=== PATIENT | male | born 1990 | race Caucasian/White ===

== ENCOUNTER 2017-10-05 10:41 | Observation (INO) ==
--- NOTE | 2017-10-05 11:04 | Emergency Department Note ---
Disposition Clinical Impression: Cauda equina compression Disposition: Admitted As Inpatient Forms: ED Satisfaction Letter Back Pain HPI - General Chief Complaint: ED Back Pain/Injury Stated Complaint: back pain Time Seen by Provider: 10/05/17 10:42 Source: EMS Limitations: no limitations - History of Present Illness HPI Narrative: 26 yo M reports to the ED c/o R sided low back pain x 2 months that radiates down the posterior-lateral aspect of his R leg to his Pinky toe that has progressively gotten worse over the last few days. He reports being unable to bear weight on leg however was able to bear weight and transfer from EMS cot to our bed. Patient was evaluated earlier this morning at [facility] ED. Lumbar X ray there showed:"1. No acute abnormality. 2. Mild facet arthropathy at L5-S1, unchanged. 3. Sclerosis along the left sacroiliac joint is unchanged and could relate to sacroiliitis." Patient denies specific moment of trauma. He reports his back pain onset gradually and has just gradually gotten worse to the point he could not bear it this morning prompting his visit to the ED. [facility] planned to discharge patient home, but patient reported being unable to stand so [facility] decided to send to [facility] for MRI of Lumbar spine. Patient denies numbness tingling, dysuria, urinary incontinence, incontinence of stool, saddle anesthesia. Pt Subjective Complaint: back pain Onset (ago): day(s) Duration: constant, gradually worsening Location: lumbar spine Quality: sharp Radiation: right leg Worsens with: movement Associated symptoms: Reports: difficulty walking. Denies: numbness, weakness, incontinence of bowel/bladder, fever, abdominal pain, dysuria, hematuria Treatments prior to arrival: NSAIDS, prescription analgesics, other medications (neurontin, flexeril, steroids) - Related Data Home Medications Medication Instructions Recorded Confirmed Cyclobenzaprine [Flexeril] 10 mg PO TID PRN 10/05/17 10/05/17 Gabapentin [Neurontin] 100 mg PO TID 10/05/17 10/05/17 Previous Rx's Medication Instructions Recorded Dexamethasone [Decadron] 4 mg PO BID #10 tab 10/05/17 HYDROcodone/Acet 5/325 mg [[place] 1 tab PO Q4H PRN 3 Days #12 tab 10/05/17 5-325 mg] Allergies Allergy/AdvReac Type Severity Reaction Status Date / Time No Known Allergies Allergy Verified 10/05/17 10:47 Review of Systems: As Per HPI Past Medical History - Past Medical History Medical history: Reports: other Surgical history: Reports: other Psychiatric history: Reports: no psych history - Social History Smoking Status: Never smoker Smokeless Tobacco Status: No Alcohol use: Reports: none Drug use: Reports: none Physical Exam - General Limitations: no limitations General appearance: alert, in no apparent distress - Head Head exam: atraumatic, normocephalic - ENT ENT exam: normal oropharynx, mucous membranes moist - Neck Neck exam: Present: full ROM, trachea midline - Chest Chest inspection: Present: symmetric chest wall rise. Absent: tenderness - Respiratory Respiratory exam: Present: normal lung sounds bilaterally. Absent: respiratory distress - Cardiovascular Cardiovascular exam: Present: regular rate, normal rhythm. Absent: normal heart sounds - Abdominal Exam Abdominal exam: Present: soft, Non-Tender - Extremities Exam Extremities exam: Present: full ROM. Absent: tenderness, pedal edema - Expanded Lower Extremity Exam Neurovascular/Tendon exam: Present: normal capillary refill. Absent: pulse deficit, motor deficit, sensory deficit, extremity cold to touch - Back Exam Back exam: Present: paraspinal tenderness (R). Absent: vertebral tenderness, rashes - Neurological Exam Neurological exam: Present: alert, oriented X3, reflexes normal. Absent: motor sensory deficit - Expanded Neurological Exam Upper motor neuron exam: Babinski sign: Absent bilaterally Sensory exam lower extremity: light touch: Normal DTR: patellar (L): 2+, patellar (R): 2+ - Psychiatric Psychiatric exam: Present: normal affect, normal mood - Skin Skin exam: Present: warm, dry Course Course Narrative: Will check MRI of lumbar spine to evaluate for buldging disc or other causes of radiculopathy. - Consultations Consultation #1: Consulted Dr. Lantigua he agreed to admit the patient and evaluate the patient for need for surgery. Vital Signs Temperature 97.6 F 10/05/17 10:42 Pulse Rate 86 10/05/17 10:42 Respiratory Rate 15 10/05/17 10:42 Blood Pressure 145/72 10/05/17 10:42 O2 Sat by Pulse Oximetry 95 10/05/17 10:42 Temperature 97.6 F 10/05/17 10:42 Pulse Rate 86 10/05/17 10:42 Respiratory Rate 15 10/05/17 10:42 Blood Pressure 145/72 10/05/17 10:42 O2 Sat by Pulse Oximetry 95 10/05/17 10:42 Oxygen Delivery Oxygen Delivery Room Air Back Pain/Injury - MDM Narrative Medical decision making narrative: Symptoms sound consistent with and S1 or L5 radiculapthy. Patient doesn't have any weakness, abnormal reflexes, or sensory deficits of exam. MRI lumbar spine performed. MRi does show severe spinal canal stenosis with disc buldge contacitng the cauda equina. Compression of R L5 nerve root. Patient will be admitted to [facility] to Dr. Lantigua. - Differential Diagnosis Differential Diagnosis: Likely: lumbar radiculopathy, sciatica, strain of lumbar region, discitis - Medical Records Medical records reviewed: Yes I reviewed the patient's medical records. - Radiology Data Radiology results reviewed: Yes I reviewed the patient's radiology results. Attestation Statement - Attestation Attestation: I, Vitaliy Méndez DO, examined this patient [id number] and my medical decision-making was reviewed with Alfonso Adhikari PGY-1 Resident Physician. I agree with the documented findings, disposition and treatment plan as described except to the extent set forth below. Please see my progress notes for details.
--- NOTE | 2017-10-05 12:59 | Emergency Department Note ---
Disposition Clinical Impression: Back pain, Cauda equina compression Disposition: Admitted As Inpatient Condition: Fair Forms: ED Satisfaction Letter Time of Disposition: 12:59 General Adult HPI - General Chief complaint: ED Back Pain/Injury Stated complaint: back pain Time Seen by Provider: 10/05/17 10:42 Source: EMS Limitations: no limitations - History of Present Illness Pain Scale: 5 - Related Data Home Medications Medication Instructions Recorded Confirmed Cyclobenzaprine [Flexeril] 10 mg PO TID PRN 10/05/17 10/05/17 Gabapentin [Neurontin] 100 mg PO TID 10/05/17 10/05/17 Previous Rx's Medication Instructions Recorded Dexamethasone [Decadron] 4 mg PO BID #10 tab 10/05/17 HYDROcodone/Acet 5/325 mg [[place] 1 tab PO Q4H PRN 3 Days #12 tab 10/05/17 5-325 mg] Allergies Allergy/AdvReac Type Severity Reaction Status Date / Time No Known Allergies Allergy Verified 10/05/17 10:47 Past Medical History - Past Medical History Medical history: Reports: other Surgical history: Reports: other Psychiatric history: Reports: no psych history - Social History Smoking Status: Never smoker Smokeless Tobacco Status: No Alcohol use: Reports: none Drug use: Reports: none Physical Exam - General Limitations: no limitations General appearance: alert, in no apparent distress Course Vital Signs Temperature 97.6 F 10/05/17 10:42 Pulse Rate 86 10/05/17 10:42 Respiratory Rate 15 10/05/17 10:42 Blood Pressure 145/72 10/05/17 10:42 O2 Sat by Pulse Oximetry 95 10/05/17 10:42 Temperature 97.6 F 10/05/17 10:42 Pulse Rate 86 10/05/17 10:42 Respiratory Rate 15 10/05/17 10:42 Blood Pressure 145/72 10/05/17 10:42 O2 Sat by Pulse Oximetry 95 10/05/17 10:42 Oxygen Delivery Oxygen Delivery Room Air Attestation Statement - Attestation Attestation: I, Vitaliy Méndez DO, examined this patient [id number] and my medical decision-making was reviewed with Alfonso Adhikari PGY-1, Resident Physician. I agree with the documented findings, disposition and treatment plan as described except to the extent set forth below. Please see my progress notes for details. 26-year-old male presents emergency room for evaluation of lower back pain. Patient has been progressively getting worse over the last several days to the point where the patient has inability to stand or walk without being on his tiptoes. Patient denies any trauma or injury. Currently denying chest pain shortness of breath headache vision changes nausea vomiting or diarrhea. He denies any medications. Denies any issues with bowel or bladder incontinence. Patient has no numbness or tingling in the lower extremities. He has no saddle paresthesias on exam. Patient has no complaints about the waist at this point. Palpation of his back does not really elicit any pain. Patient has significant pain with ambulation and standing or moving or twisting at this point. He does not have these issues he does not have any scintillating sensation lower extremities he only has pain at radiates in his lower back. Patient was seen in outside facility and required multiple doses of pain medication. He was unable to have his pain controlled and a sentinel. For MRI imaging. Patient had MRI ordered at this time. Otherwise his neurologic evaluation does not show any signs of motor function deficit. He has normal strength with extension of the great toe dorsiflexion plantar flexion and movement of the lower extremity. Initially patient deferred rectal examination of this time for sphincter tone. MRI was ordered. Disposition will be determined once imaging modality is completed. See detailed documentation of the physical exam, medical intervention, medical decision-making and disposition in the resident physician's note. No critical care by the patient' s treatment course at this time. 1255 MRI is brought back and is resulted is concerning for cauda equina-like syndrome at L4-L5. Sphincter tone was evaluated patient does appear to be diminished based on physical exam. Patient said that he uses restroom and urinated approximately 300 mL of urine. A repeat evaluation of the bladder after the urination showed approximately 650 mL of urine in his bladder at this time. Concern is that patient has had retention to a point where is retained approximately 1 L of urine in his bladder without having pain or discomfort. This is concerning for urinary retention consistent with a cauda equina-like presentation. Vital signs remain stable. Pain medication was provided. Lengthy discussion was had with the spinal surgeon Dr. Cox. He agreed to admission for observation reevaluation by himself in inpatient setting. Patient family were informed and comfortable this plan. Patient will be admitted to the floor at this point.
[2017-10-05 14:45] LABS: Basophils % 0.2 %; Hematocrit 46.9 % (37.5-50.1); Hemoglobin 16.1 g/dL (12.9-16.9); Immature Granulocytes % 0.7 % (0-4); Lymphocytes # 0.9 K/mcL (0.6-4.6); Lymphocytes % 6.3 %; Mean Corpuscular HGB Conc 34.3 g/dL (31.6-35.5); Mean Corpuscular Hemoglobin 29.3 pg (28.0-33.3); Mean Corpuscular Volume 85.3 fL (83.0-100.0); Mean Platelet Volume 9.3 fL (9.4-12.4); Monocytes # 0.3 K/mcL (0.0-1.3); Monocytes % 2.4 %; Neutrophils # 13.1 K/mcL (1.6-8.9); Platelet Count 269 K/mcL (140-400); Red Cell Distribution Width 12.5 % (11.5-14.5); Segmented Neutrophils % 90.4 %
[2017-10-05 15:00] LABS: Alanine Aminotransferase 33 Units/L (7-52); Albumin 4.4 g/dL (3.5-5.7); Albumin/Globulin Ratio 1.4 (1.1-2.2); Alkaline Phosphatase 61 Units/L (34-104); Aspartate Amino Transferase 25 Units/L (13-39); BUN/Creatinine Ratio 14 (6-26); Bilirubin,Total 1.1 mg/dL (0.3-1.0); Blood Urea Nitrogen 10 mg/dL (6-20); Calcium 9.4 mg/dL (8.6-10.3); Carbon Dioxide 30 mEq/L (23-29); Chloride 102 mEq/L (98-107); Globulin 3.1 g/dL (2.4-3.5); Glucose 117 mg/dL (70-105); INR 1.1; Osmolality,Calculated 282 (280-300); Potassium 3.9 mEq/L (3.5-5.1); Prothrombin Time 11.7 Seconds (9.4-12.1); Sodium 136 mEq/L (136-145); Total Protein 7.5 g/dL (6.4-8.9); eGFR For African Americans > 60 (> 60); eGFR For Non-African Americans > 60 (> 60)
[2017-10-05 15:03] LABS: Activated Partial Thrombo Time 27.7 Seconds (26.0-36.0)
[2017-10-05] MEDS ORDERED: Naloxone 0.4 MG/ML INJ IVP PRN ×2 (15:24→18:52)
[2017-10-05] MEDS ORDERED: Ibuprofen 400 MG TABLET PO PRN (15:24)
[2017-10-05] MEDS ORDERED: *HR* OxyCODONE Immed Rel 5 MG TABLET PO PRN (15:24)
[2017-10-05] MEDS ORDERED: *HR* HYDROcodone/Acet 5/325 mg TABLET PO PRN ×2 (15:24→18:52)
[2017-10-05] MEDS ORDERED: Ondansetron 4 MG/2 ML VIAL IVP PRN (15:24)
[2017-10-05] MEDS ORDERED: Acetaminophen 325 MG TABLET PO PRN ×2 (15:24→18:52)
--- NOTE | 2017-10-05 15:24 | Orthopedic Consult Note ---
Date of Encounter: 10/05/17 Time of Encounter: 13:00 Assessment and Plan (1) Degenerative disc disease Current Visit: Yes Status: Chronic Qualifiers: Spinal region: lumbosacral Qualified Code(s): M51.37 - Other intervertebral disc degeneration, lumbosacral region (2) Lumbar radiculopathy Current Visit: Yes Status: Acute (3) Cauda equina compression Current Visit: Yes Status: Acute (4) Back pain Current Visit: Yes Status: Acute Qualifiers: Back pain location: low back pain Chronicity: acute Back pain laterality : midline Sciatica presence: without sciatica Qualified Code(s): M54.5 - Low back pain History of Present Illness Chief complaint: right leg pain, difficulty walking, difficulty voiding HPI: Mr. Rubi is a 26 year old male presenting to [facility] for evaluation of back pain, right leg pain. He states that approximately 2 months ago he started to notice some mild lower back pain that over the past couple of weeks the pain has progressed to extension down the right lateral aspect of the thigh as well as extension to the right lateral calf not extending to the right foot. He states that what started as mild pain has progressively worsened to now as of this morning becoming intense pain leading him to go to the emergency room at [facility] this morning. He states that laying down flat makes the back pain still better however with standing it increases significantly down the leg and causes him great difficulty with walking. He states this morning in addition to the pain he had significant difficulty walking really been unable to stand which let him go to the emergency room for evaluation. He states it was standing he gets what he describes as "charley horse" and severe spasms that he states "will not go away" despite moving around her stretching. He states that the spasms are in the area of where the pain is in the right lower extremity. Most concerning he states that while at the ER this morning he noted that he was having decreased volume of urine production. He states that since this morning he has had increasing trouble with voiding. He states that he feels the urge to urinate however then is unable to initiate stream or control end of stream. On examination prior to urination patient had 1000 mL urine noted in the bladder. Post void residual was 650 mL noted. He has continue to have decreasing volumes of urinary production with each urination with increasing volumes postvoid residual per ER physician. He denies any bowel changes other than his usual unpredictable bowel secondary to his irritable bowel syndrome. He denies any numbness or tingling to the rectal groin or scrotal areas. She denies sexual dysfunction over the past couple of months since his pain started. He denies weakness in the lower extremities. He denies any trauma, falls, motor vehicle accidents, or other injury to the spine. He admits to seeing [facility] since development of the back pain. He states he seen Dr. Cruz in the office as recently as 2 days ago on 10/03/17 for this back pain and leg pain. He states that he had been put on prednisone, Flexeril, and Neurontin. He states that these combination of medications has not helped at all with the back or leg pain. 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 He states he takes medication for his bowels. He denies any history of urinary or bladder troubles requiring intervention. He denies any history of urinary retention or urination difficulties. On examination he is resting comfortably in ED cot, accompanied by his spouse, and his mother and father. He is alert and oriented 3. Sensation is intact to bilateral lower extremities in all neural dermatomes. He denies altered sensation to palpation in these regions. Upper and lower motor neuro function is intact. Strength intact. Straight leg raise to the right lower extremity is significantly positive. Straight leg raise of the left lower extremity patient has contralateral pain in the right L3-L4 distribution. Patient states that unable to walk for this provider. Assessment: Evolving cauda equina syndrome Lumbar stenosis Plan: Discussed with Dr. Cox. Given concern for evolving cauda equina syndrome with patient's increasing difficulty with urination, concern for long-term neurological damage exists. Discussed this at length with patient and his family members. Recommendation by Dr. Cox is for laminectomy of L4-5 to be performed emergently to prevent long-term consequences of nerve compression. Risks and benefits of this surgical intervention were discussed with patient and his family member. Patient verbalizes understanding of the risks and benefits and states wishes to proceed with surgical intervention. Informed consent obtained for laminectomy L4-5 for diagnoses of evolving cauda equina syndrome, lumbar stenosis. Discussed with ED physician plan of care. Admit to observation Nothing by mouth Stat CMP, CBC, PT/PTT Communicated with OR charge nurse for add-on case for today who is arranging for pain management coordination. Admission orders completed. Past Med Surg Social Fam HX - Past Medical History Medical history: other Psychiatric history: no psych history - Past Surgical History Surgical History: other - Social History Smoking Status: Never smoker Smokeless Tobacco Status: No Alcohol use: none Drug use: none - Family History Mother Hx Family Cardiac Disorders: Yes (afib) Hx Family Respiratory Disorders: Yes (sleep apnea) Medications and Allergies Cyclobenzaprine HCl [Cyclobenzaprine HCl] 5 mg PO Q8H PRN 10/05/17 [History] Gabapentin [Neurontin] 300 mg PO TID 10/05/17 [History] predniSONE [PredniSONE] See Taper PO AD 10/05/17 [History] 3 Allergy/AdvReac Type Severity Reaction Status Date / Time No Known Allergies Allergy Verified 10/05/17 10:47 All Systems Reviewed: The remainder of the systems were reviewed and are negative Physical Exam - Constitutional Vitals: Temp Pulse Resp BP Pulse Ox 99.2 F 90 16 137/81 95 10/05/17 14:36 10/05/17 14:36 10/05/17 14:36 10/05/17 14:36 10/05/17 14:36 Results - Labs Result Diagrams: 10/05/17 14:09 10/05/17 14:09 Labs: Abnormal lab results WBC 14.5 K/mcL (4.3-11.1) H 10/05/17 14:09 MPV 9.3 fL (9.4-12.4) L 10/05/17 14:09 Neutrophils # 13.1 K/mcL (1.6-8.9) H 10/05/17 14:09 Carbon Dioxide 30 mEq/L (23-29) H 10/05/17 14:09 Creatinine 0.69 mg/dL (0.70-1.30) L 10/05/17 14:09 Glucose 117 mg/dL (70-105) H 10/05/17 14:09 Total Bilirubin 1.1 mg/dL (0.3-1.0) H 10/05/17 14:09 H & H 10/05/17 Range/Units 14:09 Hgb 16.1 (12.9-16.9) g/dL Hct 46.9 (37.5-50.1) % All other labs normal. Consult Discharge Plan - Plan Referrals: Jillian Mejia [Primary Care Provider] -
[2017-10-05] MEDS ORDERED: Ringers Solution, Lactated 1,000 ML IVC SCH ×2 (15:30→18:52)
[2017-10-05] MEDS ORDERED: tiZANidine 4 MG TABLET PO PRN (15:31)
[2017-10-05] MEDS ORDERED: *HR* FentaNYL (PF) 100 MCG/2 ML VIAL ONE ×2 (15:55→16:53)
[2017-10-05] MEDS ORDERED: *HR* Midazolam HCl 2 MG/2 ML VIAL ONE (15:55)
[2017-10-05] MEDS ORDERED: *HR* Propofol 200 MG/20 ML VIAL IVP ONE (15:55)
--- NOTE | 2017-10-05 16:13 | Anesthesia Evaluation PreOp ---
Date of Encounter: 10/05/17 Time of Encounter: 16:12 - Past History Planned Operation: L4-5 Laminectomy Cardiac History: Denies any Significant Hx Pulmonary History: Denies Any Significant HX ENVELOPE PRESS OPERATOR History: Denies Any Significant HX Other Medical History: Denies Any Significant HX Anesthesia History: No Prior Anesthetic Complications, Past Anesthesia (Gut malrotation as , Robotic L-Inguinal Hernia repair, Sara, Eye surgery) Alcohol Use: none Drug use: none Medications and Allergies Cyclobenzaprine HCl [Cyclobenzaprine HCl] 5 mg PO Q8H PRN 10/05/17 [History] Gabapentin [Neurontin] 300 mg PO TID 10/05/17 [History] predniSONE [PredniSONE] See Taper PO AD 10/05/17 [History] 3 Allergy/AdvReac Type Severity Reaction Status Date / Time No Known Allergies Allergy Verified 10/05/17 10:47 - Meds/Allergy Pre-op Review Medications Reviewed: Yes Allergies Reviewed: Yes Beta Blockers on Current Med List: No Anesthesia Results - Labs 10/05/17 14:09 10/05/17 14:09 Laboratory Results WBC 14.5 K/mcL (4.3-11.1) H 10/05/17 14:09 RBC 5.50 M/mcL (4.19-5.50) 10/05/17 14:09 Hgb 16.1 g/dL (12.9-16.9) 10/05/17 14:09 Hct 46.9 % (37.5-50.1) 10/05/17 14:09 MCV 85.3 fL (83.0-100.0) 10/05/17 14:09 MCH 29.3 pg (28.0-33.3) 10/05/17 14:09 MCHC 34.3 g/dL (31.6-35.5) 10/05/17 14:09 RDW 12.5 % (11.5-14.5) 10/05/17 14:09 Plt Count 269 K/mcL (140-400) 10/05/17 14:09 MPV 9.3 fL (9.4-12.4) L 10/05/17 14:09 Immature Gran % 0.7 % (0-4) 10/05/17 14:09 Seg Neutrophils % 90.4 % 10/05/17 14:09 Lymphocytes % 6.3 % 10/05/17 14:09 Monocytes % 2.4 % 10/05/17 14:09 Eosinophils % 0.0 % 10/05/17 14:09 Basophils % 0.2 % 10/05/17 14:09 Neutrophils # 13.1 K/mcL (1.6-8.9) H 10/05/17 14:09 Lymphocytes # 0.9 K/mcL (0.6-4.6) 10/05/17 14:09 Monocytes # 0.3 K/mcL (0.0-1.3) 10/05/17 14:09 Eosinophils # 0.0 K/mcL (0.0-0.6) 10/05/17 14:09 Basophils # 0.0 K/mcL (0.0-0.2) 10/05/17 14:09 PT 11.7 Seconds (9.4-12.1) 10/05/17 14:09 INR 1.1 10/05/17 14:09 APTT 27.7 Seconds (26.0-36.0) 10/05/17 14:09 Sodium 136 mEq/L (136-145) 10/05/17 14:09 Potassium 3.9 mEq/L (3.5-5.1) 10/05/17 14:09 Chloride 102 mEq/L (98-107) 10/05/17 14:09 Carbon Dioxide 30 mEq/L (23-29) H 10/05/17 14:09 BUN 10 mg/dL (6-20) 10/05/17 14:09 Creatinine 0.69 mg/dL (0.70-1.30) L 10/05/17 14:09 Est GFR ( Amer) > 60 (> 60) 10/05/17 14:09 Est GFR (Non-Af Amer) > 60 (> 60) 10/05/17 14:09 BUN/Creatinine Ratio 14 (6-26) 10/05/17 14:09 Glucose 117 mg/dL (70-105) H 10/05/17 14:09 Calculated Osmolality 282 (280-300) 10/05/17 14:09 Calcium 9.4 mg/dL (8.6-10.3) 10/05/17 14:09 Total Bilirubin 1.1 mg/dL (0.3-1.0) H 10/05/17 14:09 AST 25 Units/L (13-39) 10/05/17 14:09 ALT 33 Units/L (7-52) 10/05/17 14:09 Alkaline Phosphatase 61 Units/L (34-104) 10/05/17 14:09 Serum Total Protein 7.5 g/dL (6.4-8.9) 10/05/17 14:09 Albumin 4.4 g/dL (3.5-5.7) 10/05/17 14:09 Globulin 3.1 g/dL (2.4-3.5) 10/05/17 14:09 Albumin/Globulin Ratio 1.4 (1.1-2.2) 10/05/17 14:09 Impressions Lumbar Spine MRI 10/05/17 11:05 IMPRESSION: 1. At L4-L5, there is right central disc extrusion which contributes to severe spinal canal stenosis and likely impinges on the traversing right L5 nerve root. 2. At L5-S1, there is central disc protrusion with minimal spinal canal stenosis. Mild bilateral neural foraminal stenosis at this level. D/ / 10/05/2017 12:20:45 Staci Reed MD / sadie Interpreting Provider: Staci Reed MD Anesthesia Exam Vital Signs Temp Pulse Resp BP Pulse Ox 10/05/17 14:36 99.2 F 90 16 137/81 95 10/05/17 13:52 18 139/72 10/05/17 10:42 97.6 F 86 15 145/72 95 Intake and Output 10/05/17 10/05/17 10/05/17 07:59 15:59 23:59 Output Total 0 / 0 Balance 0 / 0 Output: Urine 0 / 0 Other: # Bowel Movements 0 Weight 117.934 kg Patient Weight 10/05/17 23:59 Weight 117.934 kg Height: 6'1 Weight: 260# BMI = 34 - HEENT Pupil (Motor): Pupils equal, EOMI Mallampati: II Teeth: Normal Oral Opening: Greater than 3 - ENVELOPE PRESS OPERATOR LOC: Oriented ENVELOPE PRESS OPERATOR Motor: Normal RUE, Normal LUE, Normal RLE, Normal LLE (New onset bowel/ bladder associated w/ back pain), Normal Face ENVELOPE PRESS OPERATOR Sensory: Normal: RUE, LUE, RLE, LLE, Face - Cardiac Rhythm: Regular Murmur: None JVD: No - Pulmonary Breath Sounds: bilateral Clear Respiratory Effort: Symmetrical Anesthesia Assess/Plan ASA Score: 2, E Modified Arina Scale for Level of Consciousness: Cooperative, oriented, and tranquil Anesthetic Plan: General Monitoring Plan: Standard Monitors Recovery Plan: PACU Anes Supervising Prov Stmt: Pt seen/evaluated, R&B Discussed, questions answered and consent obtained. [place] MD
[2017-10-05] MEDS ORDERED: Bacitracin 50,000 UNIT, Polymyxin B Sulfate 500,000 UNIT, Sodium Chloride IRRigation 1,... IR ONE (16:15)
[2017-10-05] MEDS ORDERED: Famotidine 20 MG/2 ML VIAL ONE (16:16)
[2017-10-05] MEDS ORDERED: Acetaminophen IV 1,000 MG/100 ML INFUS..BTL ONE (16:16)
[2017-10-05] MEDS ORDERED: Pregabalin 75 MG CAPSULE ONE (16:16)
[2017-10-05] MEDS ORDERED: CeFAZolin Syr 2,000MG/20 ML 2,000 MG/20 ML SYRINGE IVPB ONE (16:23)
--- NOTE | 2017-10-05 16:23 | Spine Progress Note ---
Date of Encounter: 10/05/17 Time of Encounter: 16:20 Subjective Principal diagnosis: Evolving cauda equina syndrome Interval history: 26-year-old complaining of recent history of severe back pain and right lower extremity radicular pain. Today symptoms worsened and that he has had difficulty voiding. He was brought to the emergency department for evaluation. Post void residual was 650 mL and he had difficulty with micturition. I have confirmed the findings from Ct Rawls's examination. Of note the patient is neurovascularly intact but did have a large post void residual. MRI of the lumbar spine from today revealed a very large central disc protrusion at L4-5 causing severe stenosis. There are mild multilevel degenerative changes. Impression: 1) evolving cauda equina syndrome 2) lumbar stenosis Plan) Due to his concerning neurologic findings and symptoms consistent with evolving cauda equina syndrome, and risk for further or permanent neurologic progression, I find it reasonable consider surgery in the form of a laminectomy L4-L5. Risk benefits possible complications were discussed and the patient would like to proceed. Objective Vital signs: Vital Signs Temp Pulse Resp BP Pulse Ox 10/05/17 14:36 99.2 F 90 16 137/81 95 10/05/17 13:52 18 139/72 Intake and Output 10/05/17 10/05/17 10/05/17 07:59 15:59 23:59 Output Total 0 / 0 Balance 0 / 0 Output: Urine 0 / 0 Other: # Bowel Movements 0 - Labs CBC & BMP: 10/05/17 14:09 10/05/17 14:09 Labs: Abnormal lab results WBC 14.5 K/mcL (4.3-11.1) H 10/05/17 14:09 MPV 9.3 fL (9.4-12.4) L 10/05/17 14:09 Neutrophils # 13.1 K/mcL (1.6-8.9) H 10/05/17 14:09 Carbon Dioxide 30 mEq/L (23-29) H 10/05/17 14:09 Creatinine 0.69 mg/dL (0.70-1.30) L 10/05/17 14:09 Glucose 117 mg/dL (70-105) H 10/05/17 14:09 Total Bilirubin 1.1 mg/dL (0.3-1.0) H 10/05/17 14:09 Consult Discharge Plan - Plan Referrals: Jillian Mejia [Primary Care Provider] -
[2017-10-05] MEDS ORDERED: *HR* Morphine 10 MG/ML VIAL ONE (17:01)
[2017-10-05] MEDS ORDERED: Ondansetron 4 MG/2 ML VIAL ONE (17:22)
[2017-10-05] MEDS ORDERED: Dexamethasone 4 MG/ML VIAL ONE (17:22)
[2017-10-05] MEDS ORDERED: Neostigmine Methylsulfate 3 MG/3 ML SYRINGE ONE (17:38)
--- NOTE | 2017-10-05 18:03 | Orthopedic Operative Note ---
Date of procedure: 10/05/17 Pre-op diagnosis: Evolving cauda equina syndrome, lumbar stenosis Post-op diagnosis: same Operation/Findings: Laminectomy L4-L5: The patient was brought to the operative theater where he underwent general endotracheal anesthesia. He was given antibiotics prior to the start of the procedure. Compression boots and stockings were used for deep vein thrombosis prophylaxis. The patient was placed prone on a Bart table. The back was prepped and draped in the usual sterile fashion. An incision was marked and centered over the L4-L5 interspaces in the midline. We used Bovie cautery to make an incision and then this incision was deepened through the lumbar fascia. Bovie cautery and Garcia elevators were used to reflect the paraspinal musculature to the lateral extent of the L4-5 facet joints bilaterally. Elisa clamps were placed over the spinous processes of L4 and L5 and an intraoperative lateral fluorograph was obtained. A discusssion was held between the radiologist and surgeon who both confirmed we were at the correct operative level. We then removed the supraspinous and interspinous ligaments between L4 and L5 and subsequently removed the ligamentum flavum from its origin on the distal undersurface of the L4 lamina. We performed a laminectomy of L4 including undercutting of the facets to decompress the lateral recesses. We checked the L4-5 disc and it was noted to be protruded and calcified. Because of the calcification and the fact that there was plenty of room in the lateral recesses and no overlying stenosis after the decompression we did not make an annulotomy into the disc space. After the decompression was complete we checked the foramen and the traversing nerve roots at the L4-L5 level and they were found to be free and patent. We copiously irrigated the wound and then closed the wound in layers with 1 Vicryl for the fascia, 2-0 Vicryl for the subcutaneous tissue, and Dermabond was used for skin closure. Sterile dressings were placed over the wound, the patient was turned supine in a hospital bed, and was extubated in the operative theater. All sponge needles and instrument counts were correct at the end of the procedure. The patient tolerated the procedure well without complications. Anesthesia: GETA Surgeon: Piotr Cox Jr Was there an anesthesiology physician assistant present: No Estimated blood loss (cc): 10 Specimen: None Condition: stable Disposition: PACU
[2017-10-05] MEDS ORDERED: *HR* HYDROmorphone (PF) 1 MG/ML SYRINGE ONE (18:38)
[2017-10-05] MEDS: *HR* HYDROmorphone (PF) 1 MG/ML SYRINGE IVP PRN ×2 (18:40→18:50)
--- NOTE | 2017-10-05 19:18 | Anesthesia Evaluation Post Op ---
Date of Encounter: 10/05/17 Time of Encounter: 19:14 - Vital Signs Vital Signs: Vital Signs/O2 Sat/Glucose, Most Current Temp Pulse Resp BP Pulse Ox 10/05/17 19:03 97.8 F 90 16 126/80 95 10/05/17 18:53 92 16 128/86 96 10/05/17 18:43 84 16 131/79 97 10/05/17 18:33 97.9 F 86 16 116/79 98 10/05/17 18:23 80 18 119/74 93 10/05/17 18:13 78 18 119/78 94 10/05/17 18:03 98.0 F 71 18 133/87 100 - Lungs Lungs: Clear Ascult./Percussion - Airway Airway: Non-obstructed - Cardiovascular Regular Rate - Mental Status Mental Status: Alert & Oriented, Answers Appropriately - Pain Pain Scale: 4 Pain Scale used: Numeric (1 - 10) - Nausea Vomiting Nausea Vomiting: Not Present - Hydration Hydration: Ice chips (declines ice chips), Tong catheter - Discharge PostOp Status: Transfer Patient to floor Anes Supervising Prov Stmt: Pt seen/evaluated, VSS and pt has met criteria for discharge to floor. - MD Shannan
[2017-10-05] MEDS: *HR* OxyCODONE Immed Rel 5 MG TABLET PO PRN (20:19)
[2017-10-05] MEDS ORDERED: diazePAM 10 MG TABLET PO ONE (22:13)
[2017-10-05] MEDS ORDERED: Temazepam 15 MG CAPSULE PO ONE (22:23)
[2017-10-06] MEDS: *HR* OxyCODONE Immed Rel 5 MG TABLET PO PRN (03:00)
[2017-10-06] MEDS ORDERED: *HR* OxyCODONE Immed Rel 5 MG TABLET PO PRN (03:24)
[2017-10-06] MEDS: Gabapentin 300 MG CAPSULE PO SCH ×3 (03:50→14:35)
[2017-10-06] MEDS: CeFAZolin Pre 2,000 MG/100 ML 2,000 MG/100 ML BAG IVPB SCH ×2 (03:50→07:49)
--- NOTE | 2017-10-06 07:44 | Discharge Summary ---
Orders not resulted at time of discharge: Pending orders 10/05/17 16:45 XR lumbar spine 1V [XR] Routine Date of Encounter: 10/06/17 Time of Encounter: 09:00 - Discharge Diagnosis (1) Cauda equina compression Priority: Primary Status: Acute (2) Back pain Priority: Primary Status: Acute Qualifiers: Back pain location: low back pain Chronicity: acute Back pain laterality : midline Sciatica presence: without sciatica Qualified Code(s): M54.5 - Low back pain (3) Lumbar stenosis Priority: Primary Status: Acute Qualifiers: Neurogenic claudication status: unspecified Qualified Code(s): M48.061 - Spinal stenosis, lumbar region without neurogenic claudication (4) Status post laminectomy Priority: Primary Status: Acute - Hospital Course Hospital course: Mr. Rubi is a 26 year old male s/p Laminectomy L4-L5 on 10/05/[address] Cox for Evolving cauda equina syndrome, lumbar stenosis The patient had an uneventful postoperative course with improved postoperative function. Progressed from intravenous analgesic needs to oral analgesic needs only. Remained neurovascularly intact and mobilized satisfactorily. All intraoperative and/or postoperative radiographic studies were satisfactory. Patient is discharged with plan for rehabilitation and follow-up in 2 weeks post discharge on analgesic medication and patient's home medications. - Time Spent with Patient Total time spent providing and/or coordinating discharge services: - Discharge Medications Prescriptions: Oxycodone HCl 5 mg PO Q6H PRN 7 Days #28 tablet PRN Reason: Severe Pain Home Medications: Cyclobenzaprine HCl 5 mg PO Q8H PRN 10/05/17 [History] Gabapentin [Neurontin] 300 mg PO TID 10/05/17 [History] predniSONE [PredniSONE] See Taper PO AD 10/05/17 [History] Oxycodone HCl 5 mg PO Q6H PRN 7 Days #28 tablet 10/06/17 [Rx] Allergies/Adverse Reactions: 3 Allergy/AdvReac Type Severity Reaction Status Date / Time No Known Allergies Allergy Verified 10/05/17 10:47 Date of admission: 10/05/17 13:26 Primary care physician: Jillian Mejia Consults: 10/05/17 18:52 Consult to Nurse Navigator [CONS] Routine Comment: spine navigator Consult to Occupational Therapy [CONS] Routine Comment: Evaluate, develop and implement POC Reason for Consult: Postoperative rehabilitation Does patient have active BEDREST order?: No Is patient medically & hemodynamically stable?: Yes Patient assessed for mobility or mobilized this visit?: No Consult to Physical Therapy [CONS] Routine Comment: Evaluate, develop and implement POC Reason for Consult: Postoperative rehabilitation Does patient have active BEDREST order?: No Is patient medically & hemodynamically stable?: Yes Patient assessed for mobility or mobilized this visit?: No - VTE Documentation of Mechanical Device: Graduated compression elastic hosiery Labs on day of discharge: Labs from last 24 hours 10/05/17 10/05/17 10/05/17 14:09 14:09 14:09 WBC 14.5 H RBC 5.50 Hgb 16.1 Hct 46.9 MCV 85.3 MCH 29.3 MCHC 34.3 RDW 12.5 Plt Count 269 MPV 9.3 L Immature Gran % 0.7 Seg Neutrophils % 90.4 Lymphocytes % 6.3 Monocytes % 2.4 Eosinophils % 0.0 Basophils % 0.2 Neutrophils # 13.1 H Lymphocytes # 0.9 Monocytes # 0.3 Eosinophils # 0.0 Basophils # 0.0 PT 11.7 INR 1.1 APTT 27.7 Sodium 136 Potassium 3.9 Chloride 102 Carbon Dioxide 30 H BUN 10 Creatinine 0.69 L Est GFR ( Amer) > 60 Est GFR (Non-Af Amer) > 60 BUN/Creatinine Ratio 14 Glucose 117 H Calculated Osmolality 282 Calcium 9.4 Total Bilirubin 1.1 H AST 25 ALT 33 Alkaline Phosphatase 61 Serum Total Protein 7.5 Albumin 4.4 Globulin 3.1 Albumin/Globulin Ratio 1.4 - Impressions ITS Impressions Fluoroscopy 10/05/17 16:45 IMPRESSION: Intraprocedural fluoroscopic spot images as above. See separate procedure report for more information. D/ / 10/06/2017 05:46:32 Estrada Marina MD / [facility] Interpreting Provider: Estrada Marina MD - Patient Status Disposition: Home, Self-Care Condition: Good Functional capacity at discharge: uses cane/walker Overall status at discharge: patient is progressing back to baseline - Discharge Instructions Follow Up With: Jillian Mejia [Primary Care Provider] - Additional Instructions: Discharge Instructions: Lumbar Please call [facility] ([phone]), your Primary Care Physician, or report to the ER if you have any of the following symptoms: Fever greater that 101.5, increased pain/redness/drainage/odor for your incision site or any other concerning symptoms. ACTIVITY * May Shower * No Tub Baths * No lifting greater than 10 pounds * No Smoking * No Swimming * No off Ground Activities (Running, Climbing, Ladders, Horseback Riding) * No Driving * Wear Back Brace when up walking if lumbar fusion done MEDICATIONS: Upon discharge resume your home medications. Take all the medications as prescribed. Take a stool softener if taking narcotic pain medications. Stool softeners are only effective if you drink enough fluids. Drink 6-8 glass of water or fluids a day, unless this is not allowed for another health problem. Despite using stool softeners, if you haven't had a bowel movement in 3 days, please switch to a gentle laxative. Gentle laxatives are sold over the counter. You should have a bowel movement within 24 hours, if not call the office. You will be discharged from the hospital with a prescription for pain medication. You are encouraged to decrease the use of narcotic pain medication as tolerated. Should you require a refill, please call the office. It is best to call 48-72 hours in advance of needing a prescription refill so you don't run out of medication. WOUND CARE: Remove Dressing Tomorrow. Leave incision open to air. Pat dry when you get out of the shower. FOLLOW-UP: Please follow up with your surgeon in the orthopedic clinic in 2 weeks from the day of surgery. References: [employer] (www.apta.org) - Diet and Activity Activity: increase activity as tolerated Diet: advance to your usual diet
[2017-10-06] MEDS: *HR* HYDROcodone/Acet 10/325 mg TABLET PO PRN ×3 (07:48→17:51)
[2017-10-06 16:37] VITALS: BP 135/80
== END 2017-10-06 19:03 | disposition home or self-care (01) ==
LOC: EMEROO 10:41 → 3ANU 10:41
PROVIDERS: ADMIT Orthopaedic Surgery Orthopaedic Surgery of the Spine; ATTEND Orthopaedic Surgery Orthopaedic Surgery of the Spine